=== PATIENT | female | born 1995 | race Caucasian/White ===

== ENCOUNTER 2021-03-01 08:51 | Emergency (ER) | payer OTHER ==
[~2021-03-01] VITALS: Ht 172.7 cm; Wt 68.0 kg
[2021-03-01 09:07] VITALS: BP 129/87
[2021-03-01] MEDS ORDERED: PROVIGIL 100 M100 MG PO (09:07)
== END 2021-03-01 09:09 | disposition home or self-care (01) ==
LOC: M.ERS 08:51
DX: F90.9 Attention-deficit hyperactivity disorder, unspecified type (principal); Z76.0 Encounter for issue of repeat prescription; Z79.899 Other long term (current) drug therapy